=== PATIENT | male | born 1935 | race Caucasian/White ===

== ENCOUNTER 2018-02-11 14:54 | Emergency (ER) | payer MEDICARE ==
[~2018-02-11] VITALS: Ht 160 cm; Wt 93.2 kg
[2018-02-11 14:58] VITALS: Ht 160 cm; Wt 93.2 kg
[2018-02-11] MEDS ORDERED: HYDROCHLOROTHIA25 MG (15:36)
[2018-02-11] MEDS ORDERED: NORVASC5 MG (15:36)
[2018-02-11] MEDS ORDERED: XALATAN 0.0052.5 ML EACH EYE (15:37)
[2018-02-11 16:23] VITALS: BP 130/57
== END 2018-02-11 16:24 | disposition home or self-care (01) ==
LOC: D.ER 14:54
DX: H11.32 Conjunctival hemorrhage, left eye (principal); I10 Essential (primary) hypertension; K21.9 Gastro-esophageal reflux disease without esophagitis